=== PATIENT | male | born 1955 ===

== ENCOUNTER → 2023-12-02 17:56 | Outpatient (REF) | payer MEDICARE, BC, SELFPAY | LOC: MRI 17:56 | PROVIDERS: ATTENDING PHYSICIAN Surgery; FAMILY PHYSICIAN Family Medicine; REFERRING PHYSICIAN Obstetrics & Gynecology | DX: R97.20 Elevated prostate specific antigen [PSA] (principal) | CPT/HCPCS: 72197; A9575 ==